=== PATIENT | female | born 2000 | race Caucasian/White ===

== ENCOUNTER → 2021-01-10 | Outpatient (CLI) | payer BC ==
[~2021-01-10] MED LIST: PREDNISONE20 MG PO
== END ==
LOC: US 14:31
DX: N63.0 Unspecified lump in unspecified breast (principal); M54.2 Cervicalgia
CPT/HCPCS: 72040; 76642-LT

== ENCOUNTER → 2022-01-19 | Outpatient (CLI) | payer BC | LOC: HEART 5 13:46 | DX: R00.2 Palpitations (principal) ==